=== PATIENT | female | born 1990 | race Two or more races ===

== ENCOUNTER 2023-07-25 01:11 | Emergency (ER) | payer SELFPAY ==
[~2023-07-25] VITALS: Ht 149.9 cm; Wt 85.3 kg
[2023-07-25] MEDS ORDERED: ACETAMINOPHEN ES 500 MG TABLET PO ONE (06:30)
[2023-07-25] MEDS ORDERED: ACETAMINOPHEN ES 500 MG TABLET ONE (06:39)
[2023-07-25 08:21] VITALS: BP 131/81; TEMP 97.9; O2SAT 98
== END 2023-07-25 08:22 | disposition home or self-care (01) ==
LOC: ER 02:07
DX: F10.129 Alcohol abuse with intoxication, unspecified (principal); R51.9 Headache, unspecified; Y90.9 Presence of alcohol in blood, level not specified
CPT/HCPCS: 70450-TC; 82962-TC